=== PATIENT | female | born 1990 | race Two or more races ===

== ENCOUNTER 2025-10-22 19:50 | Emergency (ER) | payer MEDICAID, OTHER ==
[~2025-10-22] VITALS: Ht 154.9 cm; Wt 56.8 kg
[2025-10-22] MEDS: ALBUTEROL SULF 2.5 MG/0.5ML(0.5%) NEB SOLN NEB ONE (20:14)
[2025-10-22] MEDS: IPRATROPIUM BROM 0.5 MG/2.5ML INH SOL NEB ONE (20:14)
--- NOTE | 2025-10-22 20:42 | ECG ---
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
--- NOTE | 2025-10-22 20:56 | DVH ---
CHEST RADIOGRAPH INDICATION: sob TECHNIQUE: Single frontal view of the chest was obtained. COMPARISON: None FINDINGS: No focal consolidation. No significant pleural effusion. No pneumothorax. Nonenlarged cardiomediastinal silhouette. IMPRESSION: No acute pulmonary process.
[2025-10-22] MEDS ORDERED: PRED20TA2 PO (22:02)
[2025-10-22] MEDS ORDERED: ALBUAER3 IN (22:02)
--- NOTE | 2025-10-22 22:02 | ED.PDOC ---
History of Present Illness HPI Comments 35-year-old woman with a history of asthma who presents with one day of worsening shortness of breath. Patient reports that she ran out of her inhaler. Chief Complaint: Shortness of Breath Time Seen by MD: 19:56 Mode of Arrival: Ambulatory All Other Systems: Reviewed and Negative Physical Exam General Appearance: No Apparent Distress HEENT: Pharynx Normal Neck: Normal Inspection Respiratory: Wheezing Cardiovascular: No Edema Breast Exam: Deferred Gastrointestinal: No Organomegaly Genitalia: Deferred Pelvic: Deferred Rectal: Deferred Extremities: No pedal edema Neurologic: No Motor Deficits Cerebellar Function: NOT DONE Reflexes: NOT DONE Skin: Normal Color Lymphatic: NOT DONE Was a procedure done? Was a procedure done?: No Differential Dx Considerations may include: Asthma exacerbation, pneumonia, viral syndrome X-Ray, Labs, Meds, VS Vital Signs Date Time Temp Pulse Resp B/P (MAP) Pulse Ox O2 Delivery O2 Flow Rate FiO2 10/22/25 20:39 84 10/22/25 20:14 16 95 Room Air* 0 21 10/22/25 19:57 97.2 88 20 122/89 94 97.2 Current Medications Medications (Trade) Dose Ordered Sig/Braulio Route Start Time Stop Time Status Last Admin Albuterol (Ventolin Medneb) 5 mg ONCE ONCE NEB 10/22/25 20:00 10/22/25 20:01 DC 10/22/25 20:14 Ipratropium [place] (Atrovent Medneb) 0.5 mg ONCE ONCE NEB 10/22/25 20:00 10/22/25 20:01 DC 10/22/25 20:14 Time of 1ST Reevaluation: 21:59 Reevaluation 1ST: Improved Patient Education/Counseling: Diagnosis, Treatment Family Education/Counseling: No Family Present SEPSIS Sepsis Screen Date sepsis recognized/suspect: Oct 22, 2025 Time Sepsis recognized/suspect: 2000 Recent Procedure: No On Antibiotic Therapy: No Respiratory Rate >20: No Heart Rate >90: No Temp<36 C (96.8 F) or >38.3 C: No SBP <90 or MAP <65 mmHG: No New Acute Mental Status Change: No Is the patient on CPAP, BIPAP,: No Physician Orders Chest Portable (10/22/25 20:00) Vital Signs Date Time Temp Pulse Resp B/P (MAP) Pulse Ox O2 Delivery O2 Flow Rate FiO2 10/22/25 20:39 84 10/22/25 20:14 16 95 Room Air* 0 21 10/22/25 19:57 97.2 88 20 122/89 94 97.2 Medications Medications Dose Ordered Sig/Braulio Route Start Time Stop Time Status Last Admin Dose Admin Albuterol 5 mg ONCE ONCE NEB 10/22/25 20:00 10/22/25 20:01 DC 10/22/25 20:14 Ipratropium [place] 0.5 mg ONCE ONCE NEB 10/22/25 20:00 10/22/25 20:01 DC 10/22/25 20:14 Departure 1 Departure Time of Disposition: 21:59 (Now with clear lungs and is feeling better. We will discharge patient home with outpatient follow up) Impression: Primary Impression: Acute asthma exacerbation Disposition: HOME / SELF CARE / HOMELESS Condition: Stable Additional Instructions: You likely had an asthma exacerbation. You should use your inhaler as directed. Your prescribed steroids. Please take as directed. It is important to follow up with the regular doctor within 1 week. If your symptoms worsen or you have any other concerns please return to the emergency room. e-Prescriptions Albuterol Sulfate (VENTOLIN I) 90 Mcg Ih 90 MCG IN Q2HP PRN for 7 Days, #1 INH Prov: LILIA MCDONALD MD 10/22/25 Prednisone (Prednisone) 20 Mg Tab 40 MG PO DAILY for 5 Days, #10 MG Prov: LILIA MCDONALD MD 10/22/25 Discharged With: Self Critical Care Note Critical Care Time?: No Stability Stability form required: No LILIA MCDONALD MD Oct 22, 2025 22:02
[2025-10-22 22:14] VITALS: BP 101/73; PULSE 78; RESP 17; TEMP 97.7; O2SAT 97
== END 2025-10-22 22:14 | disposition home or self-care (01) ==
LOC: ER 19:50
DX: J45.901 Unspecified asthma with (acute) exacerbation (principal)
CPT/HCPCS: 71045; 93005; 94640